=== PATIENT | male | born 1940 | race Caucasian/White ===

== ENCOUNTER 2020-01-02 08:45 | Inpatient (IN) | payer OTHER, MEDICARE ==
[~2020-01-02] VITALS: Ht 182.9 cm; Wt 87.5 kg
[2020-01-02] MEDS ORDERED: FLOMAX0.4 MG PO (08:57)
--- NOTE | 2020-01-02 09:39 | NUR ---
CORTES CATHETER PLACED WITH A 16FR COUDE TIP. PT TOLERATED WELL. URINE SPECIMEN SENT TO LAB.
[2020-01-02 09:47] LABS: ANION GAP 14.8 mmol/L (8-16); CALCIUM 9.7 mg/dL (8.5-10.1); CREATININE - SERUM 6.3 mg/dL (0.6-1.3); POTASSIUM - SERUM 4.8 mmol/L (3.5-5.1)
[2020-01-02 09:54] LABS: BASOPHILS 0.1 % (0-2); EOSINOPHILS 0 % (0-7); HEMATOCRIT 42.9 % (42.0-54.0); HEMOGLOBIN 14.4 g/dL (13.5-17.5); IMMATURE GRANULOCYTES 0.3 % (0-5); LYMPHOCYTES 4.6 % (15-50); MCH 30.2 pg (26.0-34.0); MCHC 33.6 g/dL (31.0-37.0); MCV 89.9 fL (80.0-100.0); MEAN PLATELET VOLUME 9.3 fL (7.4-10.4); MONOCYTES 6.7 % (2-11); NEUTROPHILS 88.3 % (40-80); PLATELET COUNT 225 10x3/uL (130-400); RBC 4.77 10x6/uL (4.20-6.10); RDW 12.9 % (11.5-14.5); WBC 17.2 10x3/uL (4.8-10.8)
[2020-01-02 09:54] LABS: BILIRUBIN NEGATIVE (NEGATIVE); GLUCOSE NEGATIVE (NEGATIVE); KETONE NEGATIVE (NEGATIVE); NITRITE NEGATIVE (NEGATIVE); SPECIFIC GRAVITY 1.015 (1.005-1.020); UROBILINOGEN NORMAL (NORMAL)
--- NOTE | 2020-01-02 09:56 | NUR ---
1200ML TOTAL OF YELLOW URINE DRAINED FROM CORTES.
[2020-01-02] MEDS ORDERED: PROSCAR5 MG PO (09:58)
[2020-01-02 09:59] LABS: WHITE CELLS - URINE 0-5 /hpf (NEGATIVE)
[2020-01-02 10:00] LABS: BACTERIA FEW /hpf (NEGATIVE); EPITHELIAL CELLS NSEEN /hpf (0-5)
[2020-01-02 10:06] LABS: ALBUMIN 3.7 g/dL (3.4-5.0); BILIRUBIN - TOTAL 1.14 mg/dL (0.2-1.3); PROTEIN - SERUM 7.7 g/dL (6.4-8.2)
--- NOTE | 2020-01-02 10:15 | NUR ---
PT UPDATED ON PLAN OF CARE. PT DENIES NEEDS AT THIS TIME.
--- NOTE | 2020-01-02 11:25 | NUR ---
350ML CLEAR, YELLOW URINE DRAINED FROM CATHETER BAG.
[2020-01-02 12:00] VITALS: BP 136/62
[2020-01-02 14:27] VITALS: BP 136/62; Ht 182.9 cm; Wt 87.5 kg
[2020-01-02 16:00] VITALS: BP 96/66
[2020-01-02 21:01] VITALS: BP 101/68
[2020-01-03 00:21] VITALS: BP 92/59
[2020-01-03 06:10] VITALS: BP 137/58
[2020-01-03 06:20] LABS: BASOPHILS 0.1 % (0-2); EOSINOPHILS 0.8 % (0-7); IMMATURE GRANULOCYTES 0.3 % (0-5); LYMPHOCYTES 14.7 % (15-50); MCH 29.9 pg (26.0-34.0); MCHC 32.9 g/dL (31.0-37.0); MCV 91.1 fL (80.0-100.0); MEAN PLATELET VOLUME 9.3 fL (7.4-10.4); MONOCYTES 10.3 % (2-11); NEUTROPHILS 73.8 % (40-80); RBC 3.84 10x6/uL (4.20-6.10); RDW 13.1 % (11.5-14.5)
[2020-01-03 06:27] LABS: HEMOGLOBIN 11.5 g/dL (13.5-17.5); PLATELET COUNT 169 10x3/uL (130-400); WBC 9.7 10x3/uL (4.8-10.8)
[2020-01-03 06:37] LABS: ANION GAP 9.2 mmol/L (8-16); BILIRUBIN - TOTAL 0.95 mg/dL (0.2-1.3); POTASSIUM - SERUM 4.2 mmol/L (3.5-5.1)
[2020-01-03 06:42] LABS: ALBUMIN 2.4 g/dL (3.4-5.0); CREATININE - SERUM 1.1 mg/dL (0.6-1.3); PROTEIN - SERUM 5.3 g/dL (6.4-8.2)
--- NOTE | 2020-01-03 06:45 | NUR ---
I have reviewed this patient and I concur with the Shift Assessment completed by the Licensed Practical Nurse today this shift.
--- NOTE | 2020-01-03 08:00 | NUR ---
PT SITTING UP IN BED. WATCHING TV. PT WANTING TO KNOW WHEN HE WILL BE DISCHARGED AND IF HE WILL GO HOME WITH CATHETER. I STATED THAT IS SOMETHING WE WILL HAVE TO ASK THE DOCTOR. PT VERBALIZED UNDERSTANDING AND STATES HE HAS NO FURTHER NEEDS AT THIS TIME. CORTES CATHETER DRAINING DARK YELLOW URINE. WILL CONTINUE TO MONITOR. BED LOW. CL IN REACH.
[2020-01-03 08:16] VITALS: BP 125/78
--- NOTE | 2020-01-03 10:26 | NUR ---
I have reviewed this patient and I concur with the Shift Assessment completed by the Licensed Practical Nurse today this shift.
[2020-01-03 12:11] VITALS: BP 133/63
--- NOTE | 2020-01-03 14:46 | NUR ---
PT STATES THIS IS HIS THIRD DAY NOT HAVING A BM. GAVE PT A PRUNE JUICE.
--- NOTE | 2020-01-03 14:55 | NUR ---
SPOKE WITH DR. COLON AND STATED TO HER THAT GAVE PT A PRUNE JUICE TO HELP HIM HAVE A BM SINCE HE HAS NOT HAD ONE IN 3 DAYS. SHE STATES "THAT'S FINE." NO FURTHER ORDERS.
[2020-01-03 16:54] VITALS: BP 126/55
[2020-01-03 21:58] VITALS: BP 135/70
[2020-01-04 00:51] VITALS: BP 125/64
--- NOTE | 2020-01-04 03:20 | NUR ---
REC'D CHGE. OF SHIFT WALKING ROUNDS.IN BED WATCHING TV. CORTES CATH INTACT DRAINING STRAW YELLOW URINE.WILL CONTINUE OBSERVE FOR ANY CHGES AND FOLLOW CURRENT PLAN OF CARE
[2020-01-04 05:27] LABS: BASOPHILS 0.1 % (0-2); EOSINOPHILS 4.3 % (0-7); HEMATOCRIT 34.4 % (42.0-54.0); HEMOGLOBIN 11.3 g/dL (13.5-17.5); IMMATURE GRANULOCYTES 0.3 % (0-5); LYMPHOCYTES 26.2 % (15-50); MCHC 32.8 g/dL (31.0-37.0); MCV 91.2 fL (80.0-100.0); MONOCYTES 11.7 % (2-11); NEUTROPHILS 57.4 % (40-80); PLATELET COUNT 170 10x3/uL (130-400); RBC 3.77 10x6/uL (4.20-6.10)
[2020-01-04 05:51] LABS: ALKALINE PHOSPHATASE 35 U/L (30-120); ALT (SGPT) 19 U/L (10-68); BILIRUBIN - TOTAL 0.55 mg/dL (0.2-1.3); CALC OSMOLALITY 273 mosm/kg (275-300); CALCIUM 7.7 mg/dL (8.5-10.1); CARBON DIOXIDE 26.4 mmol/L (21.0-32.0); CHLORIDE - SERUM 106 mmol/L (98-107); CREATININE - SERUM 0.9 mg/dL (0.6-1.3); GLUCOSE 94 mg/dL (74-106); MAGNESIUM - SERUM 1.7 mg/dL (1.8-2.4); PHOSPHOROUS 2.7 mg/dL (2.5-4.9); POTASSIUM - SERUM 3.9 mmol/L (3.5-5.1); PROTEIN - SERUM 5.1 g/dL (6.4-8.2); SODIUM 136 mmol/L (136-145); UREA NITROGEN 17 mg/dL (7-18); eGFR NON AFRICAN AMERICAN 87 mL/min (90-120)
[2020-01-04 05:52] LABS: WBC 6.9 10x3/uL (4.8-10.8)
--- NOTE | 2020-01-04 06:00 | NUR ---
I have reviewed this patient and I concur with the Shift Assessment completed by the Licensed Practical Nurse today this shift.
[2020-01-04 06:16] VITALS: BP 122/63
[2020-01-04 08:45] VITALS: BP 135/63
[2020-01-04 12:53] VITALS: BP 130/58
--- NOTE | 2020-01-04 15:27 | NUR ---
I have reviewed this patient and I concur with the Shift Assessment completed by the Licensed Practical Nurse today this shift.
[2020-01-04 16:55] VITALS: BP 120/63
[2020-01-04 20:58] VITALS: BP 136/76
[2020-01-05 00:32] VITALS: BP 131/67
[2020-01-05 05:29] VITALS: BP 130/76
[2020-01-05 06:02] LABS: BASOPHILS 0.2 % (0-2); EOSINOPHILS 5.9 % (0-7); HEMATOCRIT 36.3 % (42.0-54.0); IMMATURE GRANULOCYTES 0.3 % (0-5); LYMPHOCYTES 29.9 % (15-50); MCH 30.2 pg (26.0-34.0); MCHC 33.1 g/dL (31.0-37.0); MCV 91.2 fL (80.0-100.0); NEUTROPHILS 52.7 % (40-80); PLATELET COUNT 190 10x3/uL (130-400); RBC 3.98 10x6/uL (4.20-6.10); RDW 12.6 % (11.5-14.5); WBC 6.4 10x3/uL (4.8-10.8)
[2020-01-05 06:23] LABS: ALKALINE PHOSPHATASE 41 U/L (30-120); ALT (SGPT) 19 U/L (10-68); BILIRUBIN - TOTAL 0.51 mg/dL (0.2-1.3); CALC OSMOLALITY 278 mosm/kg (275-300); CALCIUM 7.8 mg/dL (8.5-10.1); CHLORIDE - SERUM 108 mmol/L (98-107); CREATININE - SERUM 0.8 mg/dL (0.6-1.3); GLUCOSE 93 mg/dL (74-106); MAGNESIUM - SERUM 1.7 mg/dL (1.8-2.4); PHOSPHOROUS 3.1 mg/dL (2.5-4.9); PROTEIN - SERUM 5.1 g/dL (6.4-8.2); SODIUM 139 mmol/L (136-145); UREA NITROGEN 15 mg/dL (7-18); eGFR NON AFRICAN AMERICAN > 90 mL/min (90-120)
--- NOTE | 2020-01-05 07:15 | NUR ---
REC'D IN BED AWAKE AND ALERT. RESP EVEN AND UNLABORED WITH NO DISTRESS NOTED. CAN EXPRESS NEEDS AND WANTS. NO C/O NOTED OR VOICED. ASSESSMENT COMPLETED. C/L IN REACH AT BEDSIDE.
[2020-01-05 08:30] VITALS: BP 137/65
[2020-01-05 12:16] VITALS: BP 141/82
--- NOTE | 2020-01-05 12:57 | MORECARE ---
CASE MANAGEMENT DISCHARGE SUMMARY PATIENT: CELESTINE DUBOSE UNIT: [id number] ADM DATE: 01/02/20 AGE: 79 : 41 SEX: M ROOM/BED: D.2233 AUTHOR: GUILLERMINA SMITH PHYSICIAN: REFERRING PHYSICIAN: KING AHUMADA MD DATE OF SERVICE: 01/05/20 Discharge Plan Patient Name: CELESTINE DUBOSE [facility] [facility] 1940 Planned Disposition: Home Anticipated Discharge Date: Discharge Date: Expected LOS: Initial Reviewer: [email or web address] Initial Review Date: 01/05/2020 Generated: 01/05/20 1:56 pm DCPIA - Discharge Planning Initial Assessment Updated by [email or web address]: Jadyn Peñaloza on 01/05/20 12:56 pm * Is the patient Alert and Oriented? Yes * [facility] * Preadmission Environment Home with Family * ADLs Independent * Equipment None * List name and contact numbers for known caregivers / representatives who currently or will assist patient after discharge: JUS, , * Community resources currently utilized None * Additional services required to return to the preadmission environment? No * Can the patient safely return to the preadmission environment? Yes * Has this patient been hospitalized within the prior 30 days at any hospital? No Patient Name: CELESTINE DUBOSE Page [id number] at 1257 All edits/amendments must be made on the electronic document DICTATION DATE: 01/05/20 1256 AIRLINE MECHANIC: DM 01/05/20 1256 RPT#: [id number] DC DATE: STATUS: ADM IN [facility] [address] [place] [address] END OF REPORT
--- NOTE | 2020-01-05 13:10 | MORECARE ---
CASE MANAGEMENT DISCHARGE SUMMARY PATIENT: CELESTINE DUBOSE UNIT: [id number] ADM DATE: 01/02/20 AGE: 79 : 41 SEX: M ROOM/BED: D.2233 AUTHOR: SARAHDOC PHYSICIAN: REFERRING PHYSICIAN: KING AHUMADA MD DATE OF SERVICE: 01/05/20 Discharge Plan Patient Name: CELESTINE DUBOSE [facility] [facility] 1940 Planned Disposition: Home Anticipated Discharge Date: Discharge Date: Expected LOS: Initial Reviewer: [email or web address] Initial Review Date: 01/05/2020 Generated: 01/05/20 2:09 pm Comments DCP- Discharge Planning Updated by [email or web address]: Jadyn Peñaloza on 01/05/20 11:[address] Patient Name: CELESTINE DUBOSE Admission Status: ER Accout number: [id number] Admission Date: 01-02-2020 : 1940 Admission Diagnosis:RETENTION OF URINE, UNSPECIFIED Attending: WILMER AHUMADA Current LOS: 3 Anticipated DC Date: Planned Disposition: Home Primary Insurance[facility] POS Discharge Planning Comments: CM met with patient at bedside after explaining CM role and obtaining verbal consent. CM discussed availability / needs of home health, REHAB and medical equipment. PATIENT ABIGAIL NEED FOR HH, REHAB OR EQUIPMENT. PATIENT TO DC TO HOME WITH CORTES CATHETER. I HAVE SET HIM UP AN APPOINTMENT WITH DR. OCTAVIO MALIK UROLOGY AT [facility] FOR FRIDAY AT 0845. CM WILL FOLLOW AND ASSIST NEEDED. Treasurer: Jadyn Peñaloza DCPIA - Discharge Planning Initial Assessment Updated by [email or web address]: Jadyn Peñaloza on 01/05/20 12:56 pm * Is the patient Alert and Oriented? Yes * [facility] * Preadmission Environment Home with Family * ADLs Independent * Equipment None * List name and contact numbers for known caregivers / representatives who currently or will assist patient after discharge: JUS, , * Community resources currently utilized None * Additional services required to return to the preadmission environment? No * Can the patient safely return to the preadmission environment? Yes * Has this patient been hospitalized within the prior 30 days at any hospital? No External Providers External Provider: OTHER-OTHER Next Contact Date: Service Request Date: Service Type: Resolution: Reviewer: Comments: Last DP export: 01/05/20 11:57 am Patient Name: CELESTINE DUBOSE Page [phone] at 1310 All edits/amendments must be made on the electronic document DICTATION DATE: 01/05/20 1309 EMERGENCY DEPARTMENT DIRECTOR: CRYSTAL 01/05/20 1309 RPT#: [id number] DC DATE: STATUS: ADM IN [facility] [address] [place] [address] END OF REPORT
[2020-01-05] MEDS ORDERED: OMNICEF300 MG PO (14:21)
--- NOTE | 2020-01-05 15:45 | NUR ---
DC HOME AT THIS TIME VOICE UNDERSTANDING OF DC ORDERS WITH ALL PERSONAL BELONGS. STABLE CONDITION UPON DEPARTURE.
--- NOTE | 2020-01-05 16:19 | NUR ---
PT WAS ALSO EDUCATED ON HOW TO DO CORTES CARE AND TO EMPTY CORTES LEG BAG. EXTRA BAG WAS GIVEN. PT VOICE UNDERSTANDING.
--- NOTE | 2020-01-06 07:37 | MORECARE ---
CASE MANAGEMENT DISCHARGE SUMMARY PATIENT: CELESTINE DUBOSE UNIT: [id number] ADM DATE: 01/02/20 AGE: 79 : 41 SEX: M ROOM/BED: D.2233 AUTHOR: SARAHDOC PHYSICIAN: REFERRING PHYSICIAN: KING AHUMADA MD DATE OF SERVICE: 01/06/20 Discharge Plan Patient Name: CELESTINE DUBOSE [facility] [facility] 1940 Planned Disposition: Home Anticipated Discharge Date: Discharge Date: 01/05/2020 Expected LOS: Initial Reviewer: [email or web address] Initial Review Date: 01/05/2020 Generated: 01/06/20 8:36 am Comments DCP- Discharge Planning Updated by [email or web address]: Jadyn Peñaloza on 01/05/20 11:[address] Patient Name: CELESTINE DUBOSE Admission Status: ER Accout number: [id number] Admission Date: 01-02-2020 : 1940 Admission Diagnosis:RETENTION OF URINE, UNSPECIFIED Attending: WILMER AHUMADA Current LOS: 3 Anticipated DC Date: Planned Disposition: Home Primary [facility] Discharge Planning Comments: CM met with patient at bedside after explaining CM role and obtaining verbal consent. CM discussed availability / needs of home health, REHAB and medical equipment. PATIENT ABIGAIL NEED FOR HH, REHAB OR EQUIPMENT. PATIENT TO DC TO HOME WITH CORTES CATHETER. I HAVE SET HIM UP AN APPOINTMENT WITH DR. OCTAVIO MALIK UROLOGY AT [facility] FOR FRIDAY AT 0845. CM WILL FOLLOW AND ASSIST NEEDED. Gang Ripsaw Operator: Jadyn Peñaloza DCPIA - Discharge Planning Initial Assessment Updated by [email or web address]: Jadyn Peñaloza on 01/05/20 12:56 pm * Is the patient Alert and Oriented? Yes * [facility] * Preadmission Environment Home with Family * ADLs Independent * Equipment None * List name and contact numbers for known caregivers / representatives who currently or will assist patient after discharge: JUS, MATTHEW, * Community resources currently utilized None * Additional services required to return to the preadmission environment? No * Can the patient safely return to the preadmission environment? Yes * Has this patient been hospitalized within the prior 30 days at any hospital? No Last DP export: 01/05/20 12:10 pm Patient Name: CELESTINE DUBOSE Page 08910 at 0737 All edits/amendments must be made on the electronic document DICTATION DATE: 01/06/20 0736 MANAGER STERILE PROCESSING: CRYSTAL 01/06/20 0736 RPT#: [id number] DC DATE:01/05/20 STATUS: DIS IN [facility] [address] [place] [address] END OF REPORT
== END 2020-01-05 16:18 | disposition home or self-care (01) | DRG 726 ==
LOC: D.ER 08:45 → D.MS 10:15
PROVIDERS: Emergency Medicine; ADMIT Emergency Medicine; ATTEND Emergency Medicine
DX: N40.1 Benign prostatic hyperplasia with lower urinary tract symptoms (principal); N17.9 Acute kidney failure, unspecified; N39.0 Urinary tract infection, site not specified; N13.8 Other obstructive and reflux uropathy; R73.9 Hyperglycemia, unspecified; R97.20 Elevated prostate specific antigen [PSA]

== ENCOUNTER 2020-02-16 20:13 | Emergency (ER) | payer OTHER, MEDICARE ==
[~2020-02-16] VITALS: Ht 182.9 cm; Wt 84.1 kg
[~2020-02-16 20:13] MED LIST: FLOMAX0.4 MG PO; OMNICEF300 MG PO; PROSCAR5 MG PO
[2020-02-16 20:25] VITALS: BP 148/77; Ht 182.9 cm; Wt 84.1 kg
[2020-02-16 21:51] LABS: BACTERIA MANY /hpf (NEGATIVE); BILIRUBIN NEGATIVE (NEGATIVE); GLUCOSE NEGATIVE (NEGATIVE); KETONE NEGATIVE (NEGATIVE); NITRITE POSITIVE (NEGATIVE); SPECIFIC GRAVITY 1.025 (1.005-1.020); UROBILINOGEN NORMAL (NORMAL); WHITE CELLS - URINE >50 /hpf (NEGATIVE)
[2020-02-16] MEDS ORDERED: MACROBID100 MG PO (22:13)
== END 2020-02-16 22:33 | disposition home or self-care (01) ==
LOC: D.ER 20:13
PROVIDERS: Emergency Medicine
DX: N39.0 Urinary tract infection, site not specified (principal); T83.098A Other mechanical complication of other urinary catheter, initial encounter; R33.9 Retention of urine, unspecified; R10.30 Lower abdominal pain, unspecified

== ENCOUNTER 2020-03-01 08:52 | Emergency (ER) | payer OTHER, MEDICARE ==
[~2020-03-01] VITALS: Ht 182.9 cm; Wt 84.1 kg
[~2020-03-01 08:52] MED LIST changes: +MACROBID100 MG PO
[2020-03-01 09:04] VITALS: Ht 182.9 cm; Wt 84.1 kg
[2020-03-01] MEDS ORDERED: KEFLEX500 MG PO (09:22)
[2020-03-01] MEDS ORDERED: MACROBID100 MG PO (09:22)
[2020-03-01 10:00] VITALS: BP 143/64
[2020-03-01 10:21] LABS: BILIRUBIN NEGATIVE (NEGATIVE); GLUCOSE NEGATIVE (NEGATIVE); KETONE NEGATIVE (NEGATIVE); NITRITE NEGATIVE (NEGATIVE); UROBILINOGEN NORMAL (NORMAL)
[2020-03-01 10:22] LABS: BACTERIA MODERATE /hpf (NEGATIVE); EPITHELIAL CELLS RARE /hpf (0-5); RED CELLS - URINE >50 /hpf (0-5); WHITE CELLS - URINE 0-5 /hpf (NEGATIVE)
[2020-03-01 10:23] LABS: AMORPHOUS SEDIMENT <1+ /lpf (NONE SEEN)
== END 2020-03-01 10:00 | disposition home or self-care (01) ==
LOC: D.ER 08:52
PROVIDERS: Family Medicine
DX: N39.0 Urinary tract infection, site not specified (principal); T83.9XXA Unspecified complication of genitourinary prosthetic device, implant and graft, initial encounter